=== PATIENT | female | born 1995 | race African-American/Black ===

== ENCOUNTER 2020-08-28 11:00 | Observation (INO) | payer MEDICAID, OTHER ==
[~2020-08-28] VITALS: Ht 162.6 cm; Wt 72.6 kg
[2020-08-28 12:11] LABS: CLARITY URINE CLEAR (CLEAR); COLOR URINE YELLOW (YELLOW); KETONES URINE NEGATIVE (NEGATIVE); LEUKOCYTE ESTERASE URINE TRACE (NEGATIVE); NITRITE URINE NEGATIVE (NEGATIVE); OCCULT BLOOD URINE NEGATIVE (NEGATIVE); PH URINE 8.5 (4.5-8.0); PROTEIN URINE NEGATIVE (NEGATIVE); SPECIFIC GRAVITY URINE 1.024 (1.005-1.030)
== END 2020-08-28 14:25 | disposition home or self-care (01) ==
LOC: 8 EST LDRP 11:00
PROVIDERS: ADMIT Obstetrics & Gynecology; ATTEND Obstetrics & Gynecology
DX: O26.893 Other specified pregnancy related conditions, third trimester (principal); R10.9 Unspecified abdominal pain; Z3A.28 28 weeks gestation of pregnancy
CPT/HCPCS: 59025; 76805; 76818; 81003; G0378; 99281

== ENCOUNTER 2020-11-02 05:50 | Inpatient (IN) | payer OTHER ==
[~2020-11-02] VITALS: Ht 162.6 cm; Wt 78.9 kg
[2020-11-02] MEDS ORDERED: LIDOCAINE HCL 1% 20ML VIAL (Pyxis) INJ INFIL PRN (07:30)
[2020-11-02] MEDS ORDERED: MISOPROSTOL 200MCG TABLET VG SCH (07:30)
[2020-11-02] MEDS ORDERED: DEXT 5%/LACTATED RINGERS 1,000 ML IV PRN (07:30)
[2020-11-02] MEDS ORDERED: DEXT 5%/LR + PITOCIN 20UNITS/L 1,000 ML IV PRN (07:30)
[2020-11-02] MEDS ORDERED: BUTORPHANOL TARTRATE 2 MG/ML VIAL IV PRN (07:30)
[2020-11-02] MEDS ORDERED: NALOXONE HCL 0.4 MG/ML 1ML VIAL IM PRN (07:30)
[2020-11-02] MEDS ORDERED: METHYLERGONOVINE MALEATE 0.2 MG/ML IM PRN (07:30)
[2020-11-02] MEDS ORDERED: CARBOPROST TROMETHAMINE 250 MCG/ML AMPUL IM PRN (07:30)
[2020-11-02] MEDS: LACTATED RINGERS 1,000 ML IV SCH ×4 (07:51→13:06)
[2020-11-02 08:28] LABS: BASOPHILS % 0.6 % (0.0-2.0); EOSINOPHILS % 0.8 % (0.0-5.0); HEMATOCRIT. 28.4 % (36.0-48.0); HEMOGLOBIN. 9.2 g/dL (12.0-16.0); LYMPHOCYTES % 14.5 % (20.0-50.0); MEAN CORPUSCULAR HEMOGLOBIN 25.2 pg (28.0-32.0); MEAN CORPUSCULAR VOLUME 77.6 fL (81.0-99.0); MEAN PLATELET VOLUME 8.6 fl (7.4-10.4); MONOCYTES % 4.9 % (2.0-8.0); NEUTROPHILS % 79.2 % (40.0-76.0); PLATELET 257 x1000/uL (130-400); RED BLOOD CELL COUNT 3.65 mill/uL (4.2-5.4); RED CELL DISTRIBUTION WIDTH 16.1 % (11.6-14.6)
[2020-11-02 08:37] LABS: CLARITY URINE CLOUDY (CLEAR); COLOR URINE DK YELLOW (YELLOW); KETONES URINE 1+ (NEGATIVE); LEUKOCYTE ESTERASE URINE NEGATIVE (NEGATIVE); NITRITE URINE NEGATIVE (NEGATIVE); OCCULT BLOOD URINE NEGATIVE (NEGATIVE); PROTEIN URINE 1+ (NEGATIVE); SPECIFIC GRAVITY URINE 1.023 (1.005-1.030)
[2020-11-02 08:42] LABS: INR 0.9; PARTIAL THROMBOPLASTIN TIME 27.3 sec (23.4-31.0); PROTHROMBIN TIME 9.8 sec (9.6-11.0)
[2020-11-02] MEDS ORDERED: PREN1COM6 PO (08:58)
[2020-11-02 09:02] LABS: *AMPHETAMINES SCREEN URINE NEGATIVE (NEGATIVE)
[2020-11-02 09:03] LABS: *BARBITURATES SCREEN URINE NEGATIVE (NEGATIVE); *BENZODIAZEPINES SCREEN URINE NEGATIVE (NEGATIVE); *COCAINE SCREEN URINE NEGATIVE (NEGATIVE); METHADONE URINE SCREEN NEGATIVE (NEGATIVE); OPIATES URINE SCREEN NEGATIVE (NEGATIVE)
[2020-11-02 09:04] LABS: CANNABINOID URINE SCREEN NEGATIVE (NEGATIVE); PHENCYCLIDINE URINE SCREEN NEGATIVE (NEGATIVE)
[2020-11-02 10:37] LABS: HEPATITIS B SURFACE ANTIGEN NEGATIVE
[2020-11-02] MEDS ORDERED: PENICILLIN G POTASSIUM 5 MMU in DEXT 5% WATER 100 ML IV SCH (11:00)
[2020-11-02] MEDS ORDERED: FENTANYL CITRATE/PF 50MCG/ML 2ML VIAL ONE (11:25)
[2020-11-02] MEDS ORDERED: BUPIVACAINE HCL/PF 0.25% (2.5MG/ML) 10ML ONE (11:26)
[2020-11-02] MEDS ORDERED: EPHEDRINE SULFATE 50MG/ML VIAL ONE (11:26)
[2020-11-02] MEDS ORDERED: ROPIVACAINE HCL 2MG/ML (0.2%) 100ML BAG IR ONE ×2 (11:30→11:45)
[2020-11-02] MEDS ORDERED: ROPIVACAINE HCL/PF EPIDURAL 200 ML EPI NR (12:00)
[2020-11-02] MEDS ORDERED: PENICILLIN G POTASSIUM 2.5 MMU in DEXTROSE 5% WATER 50 ML IV SCH (17:00)
[2020-11-02] MEDS ORDERED: BISACODYL 10MG SUPP PR PRN ×2 (18:00→19:45)
[2020-11-02] MEDS ORDERED: IBUPROFEN 400MG TABLET PO PRN ×2 (18:00→19:45)
[2020-11-02] MEDS ORDERED: GLYCERIN/WITCH HAZEL LEAF MEDICATED PAD TOP PRN ×2 (18:00→19:45)
[2020-11-02] MEDS ORDERED: HEMORRHOIDAL SUPP PR PRN ×2 (18:00→19:45)
[2020-11-02] MEDS ORDERED: LANOLIN OINT 7GM TUBE TOP PRN ×2 (18:00→19:45)
[2020-11-02] MEDS ORDERED: DEXT 5%/LR + PITOCIN 20UNITS/L 1,000 ML IV SCH ×2 (18:00→19:45)
[2020-11-02] MEDS ORDERED: BENZOCAINE/LANOLIN/ALOE VERA SPRAY TOP PRN ×2 (18:00→19:45)
[2020-11-02] MEDS ORDERED: DIPHENHYDRAMINE 25MG CAPSULE PO PRN (18:00)
[2020-11-02] MEDS ORDERED: IBUPROFEN 800MG TABLET PO PRN ×2 (18:00→19:45)
[2020-11-02] MEDS ORDERED: ACETAMINOPHEN WITH CODEINE 300/30MG TABLET PO PRN ×2 (18:00→19:45)
[2020-11-02] MEDS ORDERED: RHO(D) IMMUNE GLOBULIN 300 MCG/SYR IM PRN (19:45)
[2020-11-02 20:35] VITALS: BP 121/71
[2020-11-02] MEDS: SIMETHICONE 80MG TABLET CHEW PO SCH (21:00)
[2020-11-02] MEDS ORDERED: DOCUSATE SODIUM 100MG CAPSULE PO SCH ×2 (21:00)
[2020-11-02] MEDS: MAGNESIUM/ALUMINUM HYDROXIDE/SIMETHICONE 30ML UDC PO SCH (21:00)
[2020-11-02 21:30] VITALS: BP 123/70
[2020-11-03 00:15] VITALS: BP 117/70
[2020-11-03 05:25] VITALS: BP 119/71
[2020-11-03] MEDS ORDERED: FERR325T23 PO (06:38)
[2020-11-03] MEDS ORDERED: IBUP-2030 PO (06:38)
[2020-11-03] MEDS ORDERED: FERROUS SULFATE 325MG TABLET PO SCH ×2 (07:30→09:00)
[2020-11-03] MEDS ORDERED: MEDROXYPROGESTERONE ACETATE 150MG/ML VIAL IM NR (08:00)
[2020-11-03] MEDS: SIMETHICONE 80MG TABLET CHEW PO SCH ×2 (08:19→13:12)
[2020-11-03] MEDS: MAGNESIUM/ALUMINUM HYDROXIDE/SIMETHICONE 30ML UDC PO SCH ×2 (08:21→13:12)
[2020-11-03 08:46] VITALS: BP 125/61
[2020-11-03] MEDS ORDERED: PRENATAL VIT/FE FUMARATE/FA TABLET PO SCH ×2 (09:00)
[2020-11-03 10:10] LABS: BASOPHILS % 0.2 % (0.0-2.0); EOSINOPHILS % 0.3 % (0.0-5.0); HEMATOCRIT. 25.1 % (36.0-48.0); HEMOGLOBIN. 7.9 g/dL (12.0-16.0); LYMPHOCYTES % 19.2 % (20.0-50.0); MEAN CORPUSCULAR HEMOGLOBIN 24.7 pg (28.0-32.0); MEAN CORPUSCULAR VOLUME 77.9 fL (81.0-99.0); MEAN PLATELET VOLUME 8.9 fl (7.4-10.4); MONOCYTES % 5.9 % (2.0-8.0); NEUTROPHILS % 74.4 % (40.0-76.0); PLATELET 238 x1000/uL (130-400); RED BLOOD CELL COUNT 3.22 mill/uL (4.2-5.4); RED CELL DISTRIBUTION WIDTH 16.1 % (11.6-14.6)
[2020-11-03] MEDS ORDERED: ACETAMINOPHEN WITH CODEINE 300/30MG TABLET PO PRN (18:00)
== END 2020-11-03 20:00 | disposition home or self-care (01) | DRG 560 ==
LOC: 8 EST LDRP 05:50 → OBSVTOIN 05:50 → 8EST 21:44
PROVIDERS: ADMIT Obstetrics & Gynecology; ATTEND Obstetrics & Gynecology
PROC: 10E0XZZ Delivery of Products of Conception, External Approach (ICD-10-PCS; principal; 2020-11-02)
PROC: 3E0R3BZ Introduction of Anesthetic Agent into Spinal Canal, Percutaneous Approach (ICD-10-PCS; 2020-11-02)
PROC: 00HU33Z Insertion of Infusion Device into Spinal Canal, Percutaneous Approach (ICD-10-PCS; 2020-11-02)
DX: O69.81X0 Labor and delivery complicated by cord around neck, without compression, not applicable or unspecified (principal); O99.824 Streptococcus B carrier state complicating childbirth; O99.02 Anemia complicating childbirth; D64.9 Anemia, unspecified; Z37.0 Single live birth; Z3A.38 38 weeks gestation of pregnancy
CPT/HCPCS: 36415; 80305; 81003; 85025; 86592; 86703; 86762; 86850; 86900; 87340; 99281; G0378; J1050; J2540; J2590; J2795; J3010; J3490; J7060; A4315